=== PATIENT | male | born 1970 | race Two or more races ===

== ENCOUNTER 2022-10-23 00:23 | Emergency (ER) | payer OTHER ==
[~2022-10-23] VITALS: Ht 175.3 cm; Wt 108.9 kg
== END 2022-10-23 04:38 | disposition home or self-care (01) ==
LOC: ER 00:23
DX: T65.94XA Toxic effect of unspecified substance, undetermined, initial encounter (principal); Y92.511 Restaurant or cafe as the place of occurrence of the external cause; Z88.6 Allergy status to analgesic agent; K52.9 Noninfective gastroenteritis and colitis, unspecified; A05.9 Bacterial foodborne intoxication, unspecified

== ENCOUNTER 2022-10-24 15:15 | Inpatient (IN) | payer OTHER ==
[~2022-10-24] VITALS: Ht 177.8 cm; Wt 104.3 kg
== END 2022-11-06 16:33 | disposition home or self-care (01) | DRG 330 ==
LOC: ER 15:15 → SURH 22:41
PROVIDERS: Surgery; ADMIT Internal Medicine; ATTEND Internal Medicine
PROC: BW21ZZZ Computerized Tomography (CT Scan) of Abdomen and Pelvis (ICD-10-PCS; 2022-10-24)
PROC: 0DBH4ZZ Excision of Cecum, Percutaneous Endoscopic Approach (ICD-10-PCS; 2022-10-25)
PROC: 0W9F4ZZ Drainage of Abdominal Wall, Percutaneous Endoscopic Approach (ICD-10-PCS; 2022-10-25)
PROC: 0WQF4ZZ Repair Abdominal Wall, Percutaneous Endoscopic Approach (ICD-10-PCS; 2022-10-25)
PROC: 0DTJ4ZZ Resection of Appendix, Percutaneous Endoscopic Approach (ICD-10-PCS; principal; 2022-10-25 11:30)
PROC: BW21YZZ Computerized Tomography (CT Scan) of Abdomen and Pelvis using Other Contrast (ICD-10-PCS; 2022-10-30)
PROC: 0W9F3ZZ Drainage of Abdominal Wall, Percutaneous Approach (ICD-10-PCS; 2022-11-01)
DX: K35.33 Acute appendicitis with perforation, localized peritonitis, and gangrene, with abscess (principal); L02.211 Cutaneous abscess of abdominal wall; K43.9 Ventral hernia without obstruction or gangrene; D72.828 Other elevated white blood cell count; Z20.822 Contact with and (suspected) exposure to COVID-19